=== PATIENT | male | born 1945 | race Caucasian/White ===

== ENCOUNTER 2017-12-21 20:46 | Emergency (ER) | payer MEDICARE ==
[~2017-12-21] VITALS: Ht 182.9 cm; Wt 63.5 kg
[2017-12-21] MEDS ORDERED: KLONOPIN1 MG PO (21:06)
[2017-12-21] MEDS ORDERED: OXYCODONE HCL5 MG PO (21:11)
== END 2017-12-21 22:28 | disposition home or self-care (01) ==
LOC: ED 20:46
DX: M79.605 Pain in left leg (principal); Z88.6 Allergy status to analgesic agent; Z88.0 Allergy status to penicillin; Z88.2 Allergy status to sulfonamides; Z88.1 Allergy status to other antibiotic agents; Z79.899 Other long term (current) drug therapy
CPT/HCPCS: 93971; 99284